=== PATIENT | male | born 1935 | race Two or more races ===

== ENCOUNTER 2019-12-23 20:47 | Emergency (ER) | payer MEDICARE ==
[~2019-12-23] VITALS: Ht 177.8 cm; Wt 88.7 kg
[2019-12-23 21:29] LABS: GLUCOSE,POINT OF CARE 161 MG/DL (70-110)
[2019-12-23 21:58] LABS: BASOPHILS % (AUTO) 0.3 % (0.0-2.0); EOSINOPHILS % (AUTO) 2.9 % (1.0-6.0); HEMATOCRIT 34.4 % (41-53); HEMOGLOBIN 11.6 g/dL (13.5-17.5); LYMPHOCYTES % (AUTO) 18.7 % (22.0-44.0); MEAN CORPUSCULAR HGB CONC 33.6 G/dL (31.0-37.0); MEAN CORPUSCULAR VOLUME 83 fL (80-100); MONOCYTES # (AUTO) 0.4 K/uL (0.1-1.0); NEUTROPHILS # (AUTO) 3.8 K/uL (1.8-7.7); NEUTROPHILS % (AUTO) 71.1 % (40.0-70.0); PLATELET COUNT (AUTO) 120 K/uL (150-450); RED BLOOD CELL COUNT(AUTO) 4.13 MIL/uL (4.50-5.90); RED CELL DISTRIBUTION WIDTH 14.9 % (11.5-14.5)
[2019-12-23 22:20] LABS: APPEARANCE,URINE CLEAR (CLEAR); BILIRUBIN,URINE NEGATIVE (NEGATIVE); GLUCOSE, URINE (UA) NEGATIVE (NEGATIVE); KETONES,URINE NEGATIVE (NEGATIVE); LEUKOCYTE ESTERASE ,URINE NEGATIVE (NEGATIVE); NITRATE,URINE NEGATIVE (NEGATIVE); OCCULT BLOOD,URINE TRACE (NEGATIVE); PH,URINE 6.5 (5.0-8.0); PROTEIN,URINE SEE CONFIRM (NEGATIVE)
[2019-12-23 22:26] LABS: AMPHET/METH SCREEN,URINE NEGATIVE (NEGATIVE); BARBITURATE SCREEN, URINE NEGATIVE (NEGATIVE); BENZODIAZEPINES SCREEN,URINE NEGATIVE (NEGATIVE); CANNABINOID SCREEN,URINE NEGATIVE (NEGATIVE); COCAINE SCREEN,URINE NEGATIVE (NEGATIVE); METHADONE SCREEN, URINE NEGATIVE (NEGATIVE); OPIATE SCREEN,URINE NEGATIVE (NEGATIVE)
[2019-12-23 22:27] LABS: PHENCYCLIDINE SCREEN,URINE NEGATIVE (NEGATIVE)
[2019-12-23 22:38] LABS: SULFOSALICYLIC ACID,URINE 2+ (Negative)
[2019-12-23 22:39] LABS: RBC,URINE 0-2 /HPF (0-2)
[2019-12-23 22:40] LABS: BACTERIA,URINE None Seen /HPF (None Seen); SQUAMOUS EPITHELIAL CELL,UR Rare /LPF (None Seen); WBC,URINE None Seen /HPF (0-5)
[2019-12-23 22:56] LABS: ANION GAP 14 mmol/L (8-16); CALCIUM, TOTAL 9.3 mg/dL (8.8-10.5); CARBON DIOXIDE 21 mmol/L (22-29); CHLORIDE 104 mmol/L (98-107); CREATININE 1.52 mg/dL (0.60-1.30); GLOMERULAR FILTR. RATE CALC 44 mL/min (>60); GLUCOSE,RANDOM 184 mg/dL (70-110); POTASSIUM 4.9 mmol/L (3.5-5.1); SODIUM SERUM 139 mmol/L (136-145); UREA NITROGEN, BLOOD 34 mg/dL (7-18)
[2019-12-23 23:11] LABS: ALANINE AMINOTRANSFERASE 41 U/L (12-78); ALBUMIN 3.5 g/dL (3.4-5.0); ALKALINE PHOSPHATASE 81 U/L (46-116); ASPARTATE AMINOTRANSFERASE 32 U/L (15-37); BILIRUBIN,TOTAL 0.2 mg/dL (0.1-1.0); FREE T4 (FREE THYROXINE) 1.15 ng/dL (0.76-1.46); THYROID STIMULATING HORMONE 3.53 uIU/mL (0.36-3.74); TOTAL PROTEIN, SERUM 7.4 g/dL (6.4-8.2)
[2019-12-23 23:48] LABS: COVID AG,FIA SOURCE NASOPHARYNGEAL
[2019-12-23] MEDS ORDERED: AMLO-257 PO (23:50)
[2019-12-23] MEDS ORDERED: ASPI-728 PO (23:50)
[2019-12-23] MEDS ORDERED: RIVA1PAT TD (23:50)
[2019-12-23] MEDS ORDERED: TAMS-13 PO (23:50)
[2019-12-23] MEDS ORDERED: TIMO.5OS OU (23:50)
[2019-12-23] MEDS ORDERED: PARO10TA89 PO (23:50)
[2019-12-23] MEDS ORDERED: LEVO50 PO (23:50)
[2019-12-23] MEDS ORDERED: ATOR40TA28 PO (23:50)
[2019-12-23] MEDS ORDERED: CARV6 PO (23:50)
[2019-12-23] MEDS ORDERED: LOSA25TA21 PO (23:50)
[2019-12-23] MEDS ORDERED: GABA-1216 PO (23:50)
[2019-12-23] MEDS ORDERED: RISP0.5T61 PO (23:50)
[2019-12-24] MEDS ORDERED: LORazepam 2 MG/ML VIAL IM ONE (02:00)
[2019-12-24 03:56] LABS: GLUCOSE,POINT OF CARE 144 MG/DL (70-110)
[2019-12-24 06:35] VITALS: BP 149/80
== END 2019-12-24 08:15 | disposition short-term general hospital (02) ==
LOC: EMS 20:47 → EDSEX 20:47 → EMS 12-24 08:15
DX: F32.9 Major depressive disorder, single episode, unspecified (principal); R45.851 Suicidal ideations; E11.65 Type 2 diabetes mellitus with hyperglycemia; D64.9 Anemia, unspecified; G30.9 Alzheimer's disease, unspecified; F02.80 Dementia in other diseases classified elsewhere, unspecified severity, without behavioral disturbance, psychotic disturbance, mood disturbance, and anxiety; N28.9 Disorder of kidney and ureter, unspecified; I10 Essential (primary) hypertension; E03.9 Hypothyroidism, unspecified; E78.00 Pure hypercholesterolemia, unspecified; Z79.899 Other long term (current) drug therapy; Z91.018 Allergy to other foods; Z20.828 Contact with and (suspected) exposure to other viral communicable diseases
CPT/HCPCS: 36415; 70450; 71045; 80053; 80307; 81001; 82962; 84439; 84443; 84484; 85025; 87426; 93005; 96372; 99291; G0480; J2060